=== PATIENT | male | born 1980 | race Caucasian/White ===

== ENCOUNTER 2016-10-27 10:32 | Emergency (ER) | payer OTHER ==
[~2016-10-27] VITALS: Ht 160 cm; Wt 70.0 kg
[2016-10-27 10:34] VITALS: Ht 160 cm; Wt 70.0 kg
[2016-10-27 11:47] LABS: ADD SCAN DIFF NO
[2016-10-27 11:51] LABS: ABNORMAL IP MESSAGE 1; BASOPHILS % 0.4 % (0.0-2.0); EOSINOPHILS # 0.1 10^3/ul (0.0-0.5); HEMOGLOBIN 14.6 g/dl (14.0-18.0); LYMPHOCYTES # 3.5 10^3/ul (0.8-2.9); LYMPHOCYTES % 64.7 % (15.0-51.0); MEAN CORPUSCULAR HEMOGLOBIN 26.6 pg (29.0-33.0); MEAN CORPUSCULAR HGB CONC 31.7 g/dl (32.0-37.0); MEAN CORPUSCULAR VOLUME 83.9 fl (82.0-101.0); MEAN PLATELET VOLUME 10.4 fl (7.4-10.4); MONOCYTE # 0.8 10^3/ul (0.3-0.9); MONOCYTES % 14.7 % (0.0-11.0); PLATELET COUNT 182 10^3/UL (140-415); RED BLOOD COUNT 5.48 10^6/ul (4.70-6.10); RED CELL DISTRIBUTION WIDTH 12.5 % (11.5-14.5); WHITE BLOOD COUNT 5.4 10^3/ul (4.8-10.8)
--- NOTE | 2016-10-27 11:53 | RADRPT ---
PROCEDURE: CT brain without contrast CLINICAL INDICATION: Headaches, dizziness TECHNIQUE: CT of the brain without contrast was performed on a multidetector CT scanner, with multi planar reformats. One or more of the following dose reduction techniques were used: Automated expos ure control, adjustment in mA and / or kV according to patient size, use of iterative reconstructive technique. CTDIvol = 45 mGy; DLP = 720 mGy-cm. COMPARISON: None available FINDINGS: No acute intracranial hemorrhage is identified. No extra-axial fluid collection is seen. There is no mass effect. No midline shift is identified. Ventricles and sulci are within normal limits for size and configuration. The density of the brain is within normal limits. Espinosa-white differentiation is preserved. Osseous structures are unremarkable. Mastoid air cells and imaged paranasal sinuses grossly clear. IMPRESSION: Unremarkable noncontrast CT of the brain. RPTAT: AA .Isaías Brambila MD, MD Date Time Electronically viewed and signed by .Isaías Brambila MD, on 10/27/2016 11:53 .O/
[2016-10-27 12:11] LABS: ALBUMIN 4.9 g/dl (3.3-4.9); ALBUMIN/GLOBULIN RATIO 1.48; BILIRUBIN,INDIRECT 0.2 mg/dl (0-1.1); BILIRUBIN,TOTAL 0.2 mg/dl (0.2-1.3); CALCIUM 9.6 mg/dl (8.4-10.2); CREATININE 1.21 mg/dl (0.61-1.24); POTASSIUM 4.1 mmol/L (3.5-5.1); TOTAL PROTEIN 8.2 g/dl (6.1-8.1)
--- NOTE | 2016-10-27 12:34 | ERD ---
ER Documentation Chief Complaint Date/Time DATE: 10/27/16 TIME: 12:30 Chief Complaint BIB RA FOR EVAL OF DIZZINESS HPI This 36-year-old FEmale was at his desk today at work and had sudden onset of dizziness where he felt tunnel was closed around. He had a episode of near passing out. He had mild headache which is currently resolved. He felt anxious and possibly was breathing fast but has no shortness of breath or chest pain. Denies any bowel or bladder problems or weakness. He denies any previous similar symptoms and denies any previous illnesses, inciting events any medications or any new activities. He did drink a couple coffee prior to the episode. ROS All systems reviewed and are negative except as per history of present illness. Allergies Allergies: Coded Allergies: No Known Allergy (Unverified , 10/27/16) PMhx/Soc Medical and Surgical Hx: pt denies Medical Hx, pt denies Surgical Hx History of Surgery: No Anesthesia Reaction: No Hx Neurological Disorder: No Hx Respiratory Disorders: No Hx Cardiac Disorders: No Hx Psychiatric Problems: No Hx Miscellaneous Medical Probl: No Hx Alcohol Use: No Hx Substance Use: No Hx Tobacco Use: No Smoking Status: Never smoker Physical Exam Vitals Vital Signs Date Time Temp Pulse Resp B/P Pulse Ox O2 Delivery O2 Flow Rate FiO2 10/27/16 13:20 97.8 50 18 128/80 100 Room Air 60 10/27/16 11:35 97.7 51 123/70 100 Room Air 52 130/77 60 143/83 10/27/16 10:34 97.9 58 19 142/87 99 Physical Exam Const: [] Alert, talkative, [id number] per Head: Atraumatic Eyes: Normal Conjunctiva ENT: Normal External Ears, Nose and Mouth. Neck: Full range of motion..~ No meningismus. Resp: Clear to auscultation bilaterally Cardio: Regular rate and rhythm, no murmurs Abd: Soft, non tender, non distended. Normal bowel sounds Skin: No petechiae or rashes Back: No midline or flank tenderness Ext: No cyanosis, or edema Neur: Awake and alert. Cranial nerves II through XII grossly intact. No cerebellar signs. Normal gait. Psych: Normal Mood and Affect Result Diagram: 10/27/16 1127 10/27/16 1127 Results 24 hrs Laboratory Tests Test 10/27/16 11:27 White Blood Count 5.410^3/ul Red Blood Count 5.4810^6/ul Hemoglobin 14.6g/dl Hematocrit 46.0% Mean Corpuscular Volume 83.9fl Mean Corpuscular Hemoglobin 26.6pg Mean Corpuscular Hemoglobin Concent 31.7g/dl Red Cell Distribution Width 12.5% Platelet Count 01005^3/UL Mean Platelet Volume 10.4fl Neutrophils % 18.0% Lymphocytes % 64.7% Monocytes % 14.7% Eosinophils % 2.0% Basophils % 0.4% Nucleated Red Blood Cells % 0.0/100WBC Neutrophils # 1.010^3/ul Lymphocytes # 3.510^3/ul Monocytes # 0.810^3/ul Eosinophils # 0.110^3/ul Basophils # 0.010^3/ul Nucleated Red Blood Cells # 0.010^3/ul Sodium Level 135mmol/L Potassium Level 4.1mmol/L Chloride Level 101mmol/L Carbon Dioxide Level 26mmol/L Anion Gap 12 Blood Urea Nitrogen 16mg/dl Creatinine 1.21mg/dl Glucose Level 79mg/dl Calcium Level 9.6mg/dl Total Bilirubin 0.2mg/dl Direct Bilirubin 0.00mg/dl Indirect Bilirubin 0.2mg/dl Aspartate Amino Transf (AST/SGOT) 48IU/L Alanine Aminotransferase (ALT/SGPT) 82IU/L Alkaline Phosphatase 102IU/L Total Protein 8.2g/dl Albumin 4.9g/dl Globulin 3.30g/dl Albumin/Globulin Ratio 1.48 Procedures/MDM EKG: Rate/Rhythm: [Normal Sinus Rhythm] rate equals 49 QRS, ST, T-waves: [No changes consistent w/ acute ischemia] Impression: [No evidence of ischemia or arrhythmia]. Impression-sinus bradycardia without acute findings CT brain shows no acute abnormalities. CBC and CMP showed no acute abnormalities. Patient presents with dizziness and near syncope of uncertain etiology. Orthostatic vital signs show borderline increase in pulse with standing suggesting possible minimal dehydration. Patient shows no signs or symptoms of intracranial abnormalities, ischemia, bleeding, acute coronary syndrome, signs or symptoms or history to suggest pulmonary embolism, additional emergent causes of dizziness or near syncope. He will be discharged home with instructions for rest and fluids and further observation at home. The patient was stable with no new complaints during the ER course. Clinically, there is no current evidence to suggest meningitis, sepsis, acute abdomen, pneumonia, acute coronary syndrome, pulmonary embolism, or any other emergent condition appearing to require further evaluation or hospitalization. The patient should certainly return for any new or worsening symptoms per the aftercare instructions. They should otherwise follow-up with her primary care doctor for reevaluation this week. Departure Diagnosis: Primary Impression: Near syncope Additional Impression: Dizziness Condition: Stable Patient Instructions: Possible Causes of Dizziness or Fainting, Dizziness, Unk Cause Additional Instructions: Examinations all normal today. Uncertain cause of symptoms except except suggestion of possible minimal dehydration. Recommend drink fluids and rest. Recheck for new or worsening symptoms or primary care doctor. MARISA MARTINS MD Oct 27, 2016 12:34
[2016-10-27 13:20] VITALS: BP 128/80; PULSE 60; RESP 18; TEMP 97.8
== END 2016-10-27 13:24 | disposition home or self-care (01) ==
LOC: FTE 10:32 → EDSEX 10:32 → EDBD 10:32 → FTE 13:24
DX: R55 Syncope and collapse (principal)
CPT/HCPCS: 70450; 80053; 85025; 93005